=== PATIENT | female | born 1975 | race Caucasian/White ===

== ENCOUNTER 2017-08-05 08:54 | Outpatient (CLI) | payer OTHER | END 2017-08-05 09:10 | disposition home or self-care (01) | LOC: LAB 08:54 | DX: Z80.3 Family history of malignant neoplasm of breast (principal); Z80.0 Family history of malignant neoplasm of digestive organs; Z80.51 Family history of malignant neoplasm of kidney; D68.61 Antiphospholipid syndrome; D68.62 Lupus anticoagulant syndrome; Z86.711 Personal history of pulmonary embolism; I26.99 Other pulmonary embolism without acute cor pulmonale; D51.1 Vitamin B12 deficiency anemia due to selective vitamin B12 malabsorption with proteinuria; D50.8 Other iron deficiency anemias; D51.8 Other vitamin B12 deficiency anemias; I10 Essential (primary) hypertension; D51.0 Vitamin B12 deficiency anemia due to intrinsic factor deficiency; E06.3 Autoimmune thyroiditis; E03.8 Other specified hypothyroidism; D68.8 Other specified coagulation defects; D68.52 Prothrombin gene mutation; E72.11 Homocystinuria; E72.12 Methylenetetrahydrofolate reductase deficiency; D68.4 Acquired coagulation factor deficiency; D68.59 Other primary thrombophilia; D68.2 Hereditary deficiency of other clotting factors; D68.312 Antiphospholipid antibody with hemorrhagic disorder ==

== ENCOUNTER 2017-11-16 10:07 | Outpatient (CLI) | payer OTHER | END 2017-11-16 10:12 | disposition home or self-care (01) | LOC: LAB 10:07 | DX: Z80.3 Family history of malignant neoplasm of breast (principal); Z80.0 Family history of malignant neoplasm of digestive organs; Z80.51 Family history of malignant neoplasm of kidney; D68.61 Antiphospholipid syndrome; D68.62 Lupus anticoagulant syndrome; Z86.711 Personal history of pulmonary embolism; I26.99 Other pulmonary embolism without acute cor pulmonale; D51.1 Vitamin B12 deficiency anemia due to selective vitamin B12 malabsorption with proteinuria; E72.11 Homocystinuria; E72.12 Methylenetetrahydrofolate reductase deficiency ==

== ENCOUNTER 2017-11-18 10:01 | Outpatient (CLI) | payer OTHER | END 2017-11-18 17:00 | disposition home or self-care (01) | LOC: TOM 10:01 | DX: E04.2 Nontoxic multinodular goiter (principal); D68.61 Antiphospholipid syndrome; D68.62 Lupus anticoagulant syndrome; I26.99 Other pulmonary embolism without acute cor pulmonale; D51.1 Vitamin B12 deficiency anemia due to selective vitamin B12 malabsorption with proteinuria; E72.11 Homocystinuria; E72.12 Methylenetetrahydrofolate reductase deficiency; Z86.711 Personal history of pulmonary embolism; Z80.51 Family history of malignant neoplasm of kidney; Z80.0 Family history of malignant neoplasm of digestive organs; Z80.3 Family history of malignant neoplasm of breast | CPT/HCPCS: 71270; 76536; Q9965; 71275 ==

== ENCOUNTER → 2018-05-17 09:53 | Outpatient (CLI) | payer OTHER | END | disposition home or self-care (01) | LOC: LAB 09:53 | DX: D68.62 Lupus anticoagulant syndrome (principal); Z80.3 Family history of malignant neoplasm of breast; Z80.0 Family history of malignant neoplasm of digestive organs; Z80.51 Family history of malignant neoplasm of kidney; Z86.711 Personal history of pulmonary embolism; I26.99 Other pulmonary embolism without acute cor pulmonale; D51.1 Vitamin B12 deficiency anemia due to selective vitamin B12 malabsorption with proteinuria; E72.12 Methylenetetrahydrofolate reductase deficiency; D50.8 Other iron deficiency anemias; D51.8 Other vitamin B12 deficiency anemias; K90.89 Other intestinal malabsorption; E03.8 Other specified hypothyroidism ==

== ENCOUNTER 2018-10-24 08:14 | Outpatient (CLI) | payer OTHER | END 2018-10-24 08:28 | disposition home or self-care (01) | LOC: LAB 08:14 | DX: Z80.3 Family history of malignant neoplasm of breast (principal); Z80.0 Family history of malignant neoplasm of digestive organs; Z80.51 Family history of malignant neoplasm of kidney; D68.51 Activated protein C resistance; D68.61 Antiphospholipid syndrome; D68.62 Lupus anticoagulant syndrome; Z86.711 Personal history of pulmonary embolism; I26.99 Other pulmonary embolism without acute cor pulmonale; D51.1 Vitamin B12 deficiency anemia due to selective vitamin B12 malabsorption with proteinuria; E72.11 Homocystinuria; E72.12 Methylenetetrahydrofolate reductase deficiency; D50.8 Other iron deficiency anemias; D51.8 Other vitamin B12 deficiency anemias; I10 Essential (primary) hypertension; D68.8 Other specified coagulation defects; K90.89 Other intestinal malabsorption ==

== ENCOUNTER 2019-04-28 08:01 | Outpatient (CLI) | payer OTHER | END 2019-04-28 08:25 | disposition home or self-care (01) | LOC: LAB 08:01 | DX: Z79.01 Long term (current) use of anticoagulants (principal); D68.61 Antiphospholipid syndrome; Z86.711 Personal history of pulmonary embolism; R00.2 Palpitations; M62.40 Contracture of muscle, unspecified site; M60.88 Other myositis, other site; L04.8 Acute lymphadenitis of other sites; F51.01 Primary insomnia; D50.8 Other iron deficiency anemias; R31.1 Benign essential microscopic hematuria; J45.998 Other asthma ==

== ENCOUNTER 2019-09-28 08:18 | Outpatient (CLI) | payer OTHER | END 2019-09-28 08:36 | disposition home or self-care (01) | LOC: LAB 08:18 | PROVIDERS: ATTEND Internal Medicine Hematology & Oncology | DX: D50.8 Other iron deficiency anemias (principal); I10 Essential (primary) hypertension; D51.8 Other vitamin B12 deficiency anemias; E55.9 Vitamin D deficiency, unspecified; E03.8 Other specified hypothyroidism; D68.8 Other specified coagulation defects; E72.11 Homocystinuria; R97.0 Elevated carcinoembryonic antigen [CEA]; R97.8 Other abnormal tumor markers; Z80.3 Family history of malignant neoplasm of breast; Z80.0 Family history of malignant neoplasm of digestive organs; Z80.51 Family history of malignant neoplasm of kidney; Z86.711 Personal history of pulmonary embolism; I26.99 Other pulmonary embolism without acute cor pulmonale; D51.1 Vitamin B12 deficiency anemia due to selective vitamin B12 malabsorption with proteinuria; E72.12 Methylenetetrahydrofolate reductase deficiency ==

== ENCOUNTER 2020-01-27 08:33 | Outpatient (CLI) | payer OTHER | END 2020-01-27 08:48 | disposition home or self-care (01) | LOC: LAB 08:33 | PROVIDERS: ATTEND Internal Medicine Hematology & Oncology | DX: D50.8 Other iron deficiency anemias (principal); I10 Essential (primary) hypertension; D51.8 Other vitamin B12 deficiency anemias; E55.9 Vitamin D deficiency, unspecified; E03.8 Other specified hypothyroidism; D68.8 Other specified coagulation defects; D68.59 Other primary thrombophilia; E72.11 Homocystinuria; Z80.3 Family history of malignant neoplasm of breast; Z80.0 Family history of malignant neoplasm of digestive organs; Z80.51 Family history of malignant neoplasm of kidney; Z86.711 Personal history of pulmonary embolism; I26.99 Other pulmonary embolism without acute cor pulmonale; D51.1 Vitamin B12 deficiency anemia due to selective vitamin B12 malabsorption with proteinuria; E72.12 Methylenetetrahydrofolate reductase deficiency ==

== ENCOUNTER 2020-07-29 10:03 | Outpatient (CLI) | payer OTHER | END 2020-07-29 10:06 | disposition home or self-care (01) | LOC: LAB 10:03 | PROVIDERS: ATTEND Internal Medicine Hematology & Oncology | DX: D50.8 Other iron deficiency anemias (principal); I10 Essential (primary) hypertension; D51.8 Other vitamin B12 deficiency anemias; D68.8 Other specified coagulation defects; E03.8 Other specified hypothyroidism; D68.59 Other primary thrombophilia; E72.11 Homocystinuria; E55.9 Vitamin D deficiency, unspecified; R74.02 Elevation of levels of lactic acid dehydrogenase [LDH]; K76.89 Other specified diseases of liver ==

== ENCOUNTER 2021-07-03 09:58 | Outpatient (CLI) | payer OTHER | END 2021-07-03 10:06 | disposition home or self-care (01) | LOC: LAB 09:58 | PROVIDERS: ATTEND Internal Medicine Hematology & Oncology | DX: E78.5 Hyperlipidemia, unspecified (principal); E53.1 Pyridoxine deficiency; D51.3 Other dietary vitamin B12 deficiency anemia; E11.40 Type 2 diabetes mellitus with diabetic neuropathy, unspecified; E03.9 Hypothyroidism, unspecified; D50.8 Other iron deficiency anemias; I10 Essential (primary) hypertension; R74.02 Elevation of levels of lactic acid dehydrogenase [LDH]; K76.89 Other specified diseases of liver; D63.8 Anemia in other chronic diseases classified elsewhere; D51.8 Other vitamin B12 deficiency anemias; E55.9 Vitamin D deficiency, unspecified; E03.8 Other specified hypothyroidism; D68.8 Other specified coagulation defects; Z80.3 Family history of malignant neoplasm of breast; Z80.0 Family history of malignant neoplasm of digestive organs; Z80.51 Family history of malignant neoplasm of kidney; D68.62 Lupus anticoagulant syndrome; Z86.711 Personal history of pulmonary embolism; I26.99 Other pulmonary embolism without acute cor pulmonale; D51.1 Vitamin B12 deficiency anemia due to selective vitamin B12 malabsorption with proteinuria; E72.12 Methylenetetrahydrofolate reductase deficiency; R10.30 Lower abdominal pain, unspecified ==

== ENCOUNTER 2022-04-05 13:25 | Emergency (ER) | payer OTHER ==
[~2022-04-05] VITALS: Ht 165.1 cm; Wt 69.4 kg
[2022-04-05] MEDS ORDERED: LIPITOR40 M1 (14:22)
[2022-04-05] MEDS ORDERED: LEVOTHYROXINE25 MCG (14:22)
[2022-04-05] MEDS ORDERED: JANTOVEN7.5 MG (14:22)
[2022-04-05] MEDS ORDERED: PLAQUENIL (14:23)
== END 2022-04-05 19:09 | disposition home or self-care (01) ==
LOC: ER 13:25
DX: S40.021A Contusion of right upper arm, initial encounter (principal); D68.61 Antiphospholipid syndrome; Z86.72 Personal history of thrombophlebitis; N39.0 Urinary tract infection, site not specified; D68.8 Other specified coagulation defects

== ENCOUNTER 2022-08-14 10:41 | Outpatient (CLI) | payer OTHER ==
[~2022-08-14 10:41] MED LIST: JANTOVEN7.5 MG; LEVOTHYROXINE25 MCG; LIPITOR40 M1; PLAQUENIL
== END 2022-08-14 10:45 | disposition home or self-care (01) ==
LOC: LAB 10:41
PROVIDERS: ATTEND Internal Medicine Hematology & Oncology
DX: D50.8 Other iron deficiency anemias (principal); I10 Essential (primary) hypertension; R74.02 Elevation of levels of lactic acid dehydrogenase [LDH]; K76.89 Other specified diseases of liver; E55.9 Vitamin D deficiency, unspecified; E03.8 Other specified hypothyroidism; D68.8 Other specified coagulation defects; D68.59 Other primary thrombophilia; D56.9 Thalassemia, unspecified; R97.8 Other abnormal tumor markers; R97.1 Elevated cancer antigen 125 [CA 125]; Z80.3 Family history of malignant neoplasm of breast; Z80.0 Family history of malignant neoplasm of digestive organs; Z80.51 Family history of malignant neoplasm of kidney; Z86.711 Personal history of pulmonary embolism; D51.1 Vitamin B12 deficiency anemia due to selective vitamin B12 malabsorption with proteinuria; R10.30 Lower abdominal pain, unspecified; I26.99 Other pulmonary embolism without acute cor pulmonale; N63.20 Unspecified lump in the left breast, unspecified quadrant

== ENCOUNTER 2022-12-06 08:27 | Outpatient (CLI) | payer OTHER ==
[2022-12-06 09:20] LABS: HEMATOCRIT 38.3 % (36.0-45.00); HEMOGLOBIN 12.9 g/dL (12.0-15.00); MEAN CELL VOLUME 80.2 fL (80.00-100.00); MEAN CORPUSCULAR HGB CONC 33.7 g/dl (32.0-36.0); PLATELET COUNT 226 K/uL (150-450); RED BLOOD COUNT 4.78 M/uL (4.00-6.00)
[2022-12-06 09:28] LABS: RED CELL DISTRIBUTION WIDTH 18.4 % (11.5-14.5)
[2022-12-06 09:56] LABS: % SATURACION 13.9 % (15-50); ALBUMIN 3.7 gm/dL (3.4-5.0); BILIRUBIN TOTAL 0.25 mg/dL (0.3-1.2); CALCIUM 8.5 mg/dL (8.5-10.1); CREATININE SERUM 0.74 mg/dL (0.55-1.02); FERRITIN 117.5 NG/ML (8-252); GFR 84.49; GLOBULINA 3.3 G/DL (2.4-3.5); POTASSIUM 4.14 mEq/L (3.5-5.1)
[2022-12-06 10:02] LABS: INR 2.33
[2022-12-06 11:15] LABS: FOLIC ACID 19.77 ng/ml (4.78-20)
== END 2022-12-06 08:29 | disposition home or self-care (01) ==
LOC: LAB 08:27
PROVIDERS: ATTEND Internal Medicine Hematology & Oncology
DX: D50.8 Other iron deficiency anemias (principal); I10 Essential (primary) hypertension; R74.02 Elevation of levels of lactic acid dehydrogenase [LDH]; K76.89 Other specified diseases of liver; D68.61 Antiphospholipid syndrome; D51.1 Vitamin B12 deficiency anemia due to selective vitamin B12 malabsorption with proteinuria; D68.8 Other specified coagulation defects; E72.12 Methylenetetrahydrofolate reductase deficiency; Z80.3 Family history of malignant neoplasm of breast; Z80.0 Family history of malignant neoplasm of digestive organs; Z80.51 Family history of malignant neoplasm of kidney; Z86.711 Personal history of pulmonary embolism; R10.30 Lower abdominal pain, unspecified; I26.99 Other pulmonary embolism without acute cor pulmonale; N63.20 Unspecified lump in the left breast, unspecified quadrant

== ENCOUNTER 2023-05-31 10:07 | Outpatient (CLI) | payer OTHER ==
[2023-05-31 11:49] LABS: HEMATOCRIT 37.4 % (36.0-45.00); HEMOGLOBIN 12.6 g/dL (12.0-15.00); MEAN CELL VOLUME 83.6 fL (80.00-100.00); MEAN CORPUSCULAR HEMOGLOBIN 28.1 pg (27.00-32.0); MEAN CORPUSCULAR HGB CONC 33.6 g/dl (32.0-36.0); PLATELET COUNT 211 K/uL (150-450); RED BLOOD COUNT 4.47 M/uL (4.00-6.00); RED CELL DISTRIBUTION WIDTH 14.1 % (11.5-14.5)
[2023-05-31 12:09] LABS: INR 2.7
[2023-05-31 12:16] LABS: ALBUMIN 3.9 gm/dL (3.4-5.0); BILIRUBIN TOTAL 0.29 mg/dL (0.3-1.2); CREATININE SERUM 0.67 mg/dL (0.55-1.02); FERRITIN 12.7 NG/ML (8-252); GFR 94.76; GLOBULINA 3.2 G/DL (2.4-3.5); POTASSIUM 4.14 mEq/L (3.5-5.1); T4 FREE 0.95 NG/ML (0.76-1.46); TOTAL PROTEIN 7.1 gm/dL (6.4-8.2); TSH 1.54 uIU/mL (0.358-3.74)
[2023-05-31 12:20] LABS: PARTIAL THROMBOPLASTIN TIME 41.9 SECONDS (22.0-34.0); PROTHROMBIN TIME 26.3 SECONDS (9.0-11.5)
[2023-05-31 14:01] LABS: FOLIC ACID > 20.00 ng/ml (4.78-20)
[2023-06-04 09:07] LABS: CA 125 10.5 U/mL (0.0-38.1); CA 15-3 19.7 U/mL (0.0-25.0); HOMOCYSTEINE 8.1 umol/L (0.0-14.5)
== END 2023-05-31 10:08 | disposition home or self-care (01) ==
LOC: LAB 10:07
PROVIDERS: ATTEND Internal Medicine Hematology & Oncology
DX: Z80.3 Family history of malignant neoplasm of breast (principal); Z80.0 Family history of malignant neoplasm of digestive organs; Z80.51 Family history of malignant neoplasm of kidney; D50.8 Other iron deficiency anemias; Z86.711 Personal history of pulmonary embolism; D51.1 Vitamin B12 deficiency anemia due to selective vitamin B12 malabsorption with proteinuria; E72.11 Homocystinuria; E72.12 Methylenetetrahydrofolate reductase deficiency; R10.30 Lower abdominal pain, unspecified; I26.99 Other pulmonary embolism without acute cor pulmonale; N63.20 Unspecified lump in the left breast, unspecified quadrant; N93.8 Other specified abnormal uterine and vaginal bleeding; I10 Essential (primary) hypertension; R74.02 Elevation of levels of lactic acid dehydrogenase [LDH]; K76.89 Other specified diseases of liver; E03.8 Other specified hypothyroidism; D68.59 Other primary thrombophilia; C56.9 Malignant neoplasm of unspecified ovary; R97.8 Other abnormal tumor markers; D68.8 Other specified coagulation defects

== ENCOUNTER → 2024-08-04 10:28 | Outpatient (CLI) | payer OTHER ==
[2024-08-04 11:20] LABS: BASO % 0.7 % (0.1-1.2); EOS # 0.05 (0.04-0.54); EOS % 1.1 % (0.7-7.0); HEMATOCRIT 31.8 % (34.1-44.9); HEMOGLOBIN 9.6 g/dL (11.2-15.7); LYMPH # 1.34 (1.18-3.74); LYMPH % 29.3 % (19.3-53.1); MEAN CORPUSCULAR HEMOGLOBIN 21.3 pg (25.6-32.2); MONO # 0.31 (0.24-0.82); MONO % 6.8 % (4.7-12.5); NEUT # 2.83 (1.56-6.13); NEUT % 61.7 % (34.0-71.1); PLATELET COUNT 302 K/uL (163-369); RED CELL DISTRIBUTION WIDTH 18.2 % (11.6-14.4)
[2024-08-04 11:40] LABS: INR 1.23; PARTIAL THROMBOPLASTIN TIME 27.6 SECONDS (22.0-34.0); PROTHROMBIN TIME 13.2 SECONDS (9.0-11.5)
[2024-08-04 12:06] LABS: % SATURACION 2.7 % (15-50); ALBUMIN 3.8 gm/dL (3.4-5.0); BILIRUBIN TOTAL 0.28 mg/dL (0.3-1.2); CREATININE SERUM 0.7 mg/dL (0.55-1.02); GFR 89.69; GLOBULINA 3.5 G/DL (2.4-3.5); POTASSIUM 4.33 mEq/L (3.5-5.1); TOTAL PROTEIN 7.3 gm/dL (6.4-8.2)
[2024-08-04 12:07] LABS: FERRITIN 5.6 NG/ML (8-252)
[2024-08-04 13:02] LABS: FOLIC ACID 17.25 ng/ml (4.78-20)
[2024-08-05 09:08] LABS: CA 15-3 20.9 U/mL (0.0-25.0); HOMOCYSTEINE 7.3 umol/L (0.0-14.5)
== END | disposition home or self-care (01) ==
LOC: LAB 10:28
PROVIDERS: ATTEND Internal Medicine Hematology & Oncology
DX: Z80.3 Family history of malignant neoplasm of breast (principal); Z80.0 Family history of malignant neoplasm of digestive organs; Z80.51 Family history of malignant neoplasm of kidney; D50.8 Other iron deficiency anemias; D51.1 Vitamin B12 deficiency anemia due to selective vitamin B12 malabsorption with proteinuria; Z86.711 Personal history of pulmonary embolism; R10.30 Lower abdominal pain, unspecified; N63.20 Unspecified lump in the left breast, unspecified quadrant; N93.8 Other specified abnormal uterine and vaginal bleeding; N63.10 Unspecified lump in the right breast, unspecified quadrant; D68.59 Other primary thrombophilia; R97.0 Elevated carcinoembryonic antigen [CEA]; I10 Essential (primary) hypertension; K76.89 Other specified diseases of liver; R74.02 Elevation of levels of lactic acid dehydrogenase [LDH]; C50.919 Malignant neoplasm of unspecified site of unspecified female breast; R97.8 Other abnormal tumor markers; E72.11 Homocystinuria; E72.12 Methylenetetrahydrofolate reductase deficiency; Z79.01 Long term (current) use of anticoagulants; D68.8 Other specified coagulation defects